=== PATIENT | male | born 1950 | race Two or more races ===

== ENCOUNTER 2024-04-06 08:15 | Day surgery (SDC) | payer OTHER, SELFPAY ==
--- NOTE | 2024-03-30 06:11 | EKG_ITS ---
[facility] Test Date: 2024-03-30 Pat Name: ISABELLA CHENEYDepartment: Room: - Gender: Male Medical Housekeeper: KRANTHI : 1950 Requested By: Toño Silver Order Number: [id number] Reading MD: Toño Silver Measurements Intervals [place] Rate: 67 P: 70 CT: 201 QRS: -55 QRSD: 96 T: 80 QT: 386 QTc: 409 Interpretive Statements SINUS RHYTHM INDETERMINATE AXIS No previous ECG available for comparison /[email or web address]/[id number].pdf
[2024-03-30 10:05] VITALS: BMI 27.4
[2024-03-30 10:35] LABS: Collection Type, Urine Clean Catch; Squamous Epithelial Cell,Urine 0 /hpf (0-5); WBC,Urine 0 /hpf (0-5)
[2024-03-30 11:19] LABS: Bilirubin,Urine Negative (Negative); Blood,Urine Negative (Negative); Clarity,Urine Clear (Clear/Hazy); Color,Urine Lt-Yellow (Lt Yel-Yel); Glucose, Urine Negative (Negative); Ketones,Urine Negative (Negative); Leukocyte Esterase,Urine Negative (Negative); Nitrite,Urine Negative (Negative); Protein,Urine Negative (Neg - Trace); RBC,Urine 2 /hpf (0-3); Specific Gravity,Urine 1.012 (1.001-1.035); Urobilinogen,Urine Negative mg/dL (0.0-1.0)
[2024-03-30 11:19] LABS: Basophils % (Auto) 0 % (0-2.5); Eosinophils # (Auto) 0.1 Thou/mm3 (0.0-0.5); Eosinophils % (Auto) 1 % (0-10); Hematocrit 41.1 % (41.0-53.0); Hemoglobin 13.6 g/dL (13.5-16.0); Immature Granulocytes % (Auto) 1 % (0-0); Immature Granulocytes Auto 0.04 Thou/mm3 (0.00-0.00); Lymphocytes # (Auto) 1.4 Thou/mm3 (1.0-4.8); Lymphocytes % (Auto) 22 % (10-50); Mean Corpuscular HGB Conc 33.1 g/dl (31.0-37.0); Mean Corpuscular Hemoglobin 29.8 pg (25.0-35.0); Mean Corpuscular Volume 90 fL (80-100); Monocytes # (Auto) 0.4 Thou/mm3 (0.0-0.8); Monocytes % (Auto) 7 % (0-12); Neutrophils # (Auto) 4.5 Thou/mm3 (1.8-7.7); Neutrophils % (Auto) 70 % (37-80); Nucleated Red Blood Cell % 0 /100 WBC (0); Platelet Count 311 Thou/mm3 (140-440); RDW Standard Deviation 43.2 fL (35.1-43.9); Red Blood Count 4.57 Miln/mm3 (4.50-5.90); White Blood Count 6.5 Thou/mm3 (3.8-10.6)
[2024-03-30 11:28] LABS: Alanine Aminotransferase 14 U/L (10-49); Albumin, Serum 4.5 gm/dL (3.4-4.8); Albumin/Globulin Ratio 1.5 (1.2-2.2); Alkaline Phosphatase 74 U/L (46-116); Anion Gap 5 (7-16); Aspartate Amino Transferase < 10 U/L (0-34); BUN/Creatinine Ratio 11 Ratio (12-20); Bilirubin,Total 0.8 mg/dL (0.3-1.2); Blood Urea Nitrogen 13 mg/dL (9-23); Calcium 9.4 mg/dL (8.3-10.6); Calcium (Corrected) 9.4 mg/dL (8.5-10.1); Chloride 104 mMol/L (98-107); Creatinine (Component) 1.2 mg/dL (0.6-1.3); Estimated Creatinine Clearance 51.5 mL/min (>60); Globulin 3.1 gm/dL (2.3-3.5); Glucose 93 mg/dL (74-106); Osmolality,Calculated 275 (275-295); Potassium 4.2 mMol/L (3.4-5.1); Sodium 138 mMol/L (136-145); Total Protein 7.6 gm/dL (5.7-8.2); eGFR > 60 See Note
[2024-04-06] VITALS (7 sets, daily range): BP systolic 109–127; BP diastolic 64–75; PULSE 55–62; RESP 12–16; TEMP 36.2–36.6; O2SAT 95–99; BMI 26.9
--- NOTE | 2024-04-06 08:13 | ESHP_ITS ---
RE: ISABELLA SANTILLAN : 1950 DATE OF ADMISSION: 04/05/2024 HISTORY OF PRESENT ILLNESS: The patient is a 74-year-old male Sinhala-speaking with difficulty urinating with elevated PSA of 5.18. He is now scheduled to have cystoscopy and transrectal prostatic ultrasound with ultrasound-guided prostatic needle biopsy. He has a slow urinary stream, nocturia, burning in the urine, no blood in the urine. PAST SURGICAL HISTORY: Included appendectomy and left hip replacement. SOCIAL HISTORY: He has four children. ALLERGIES: NONE KNOWN. PAST MEDICAL HISTORY: There is no history of diabetes mellitus. He has a history of hypertension. HOME MEDICATIONS: He takes: 1. Allopurinol. 2. Clonidine. 3. Tamsulosin 0.4 mg every day. 4. Coreg medication 5. Norvasc 6. Statin medication. PHYSICAL EXAMINATION: HEENT: Normal. NECK: Supple. LUNGS: Clear. CARDIOVASCULAR: Heart sounds are normal. ABDOMEN: Soft without any organomegaly. No guarding. No rigidity. EXTREMITIES: Normal. GENITOURINARY: Phallus is normal. Testes are down in the scrotum RECTAL: Reveal 2+ enlarged prostate without any hard nodules. IMPRESSION: Prostatism, prostatic obstruction, elevated PSA of 5.18. PLAN: Cystoscopy, transrectal prostatic ultrasound with ultrasound-guided prostatic needle biopsy. Planned procedure risks and complications have been discussed with the patient. The patient has understood them and agreed to proceed. DT: 11:45:42 TT: 12:33:00 Ref: [id number] - TID: [id number]
[2024-04-06] MEDS: METOCLOPRAMIDE INJ 5 MG/ML VIAL 2 ML 10 MG IVP (09:05)
[2024-04-06] MEDS: RINGERS LACTATED 1000 ML 1,000 ML 20 ML IV (09:06)
--- NOTE | 2024-04-06 11:15 | XR_ITS ---
Examination: Transrectal prostate sonography Exam date and time: April 06, 2024 1212 hours INDICATIONS: Limited sonographic imaging of the prostate for prostate biopsies TECHNIQUE AND FINDINGS: Limited trans rectal sonographic images prostate [address] Silver IMPRESSION: Limited transrectal prostate imaging
--- NOTE | 2024-04-06 12:30 | SUR.PHASEII ---
pt received from OR in recovery bay 8. pt asleep but responds to voice, breathing unlabored on room air. v/s stable. report received from Anita CORTEZ and Genny SHEPARD.
--- NOTE | 2024-04-06 12:47 | SUR.PHASEII ---
pt able to tolerate oral fluids without difficulty swallowing or nausea/vomiting.
--- NOTE | 2024-04-06 12:56 | SUR.PHASEII ---
1256 Report received from Ronaldo CORTEZ
--- NOTE | 2024-04-06 13:00 | SUR.PHASEII ---
1300 Patient family called, they stated they were 5 minutes away
--- NOTE | 2024-04-06 13:40 | SUR.PHASEII ---
3984 Patient meets discharge criteria from recovery, awake and alert, breathing unlabored, vital signs stable, denies pain, patient ate two jello and drinking juice; tolerating well, denies nausea, patient urinated in restroom prior to discharge, discharge instructions given to patient and patients daughter with the assistance of the telephone fiction and nonfiction writer prose Skip ID#[id number], daughter signed discharge instructions. Patient given all her belongings prior to discharge, transported via wheelchair and left in a private vehicle.
--- NOTE | 2024-04-06 19:12 | ESOP_ITS ---
RE: ISABELLA SANTILLAN : 1950 DATE OF OPERATION: 04/06/2024 PREOPERATIVE DIAGNOSES: Prostatism, prostatic obstruction, elevated prostatic specific antigen of 5.18. POSTOPERATIVE DIAGNOSES: Prostatism, prostatic obstruction, elevated prostatic specific antigen of 5.18. PROCEDURE PERFORMED: Cystoscopy, urethral dilatation, transrectal prostatic ultrasound with ultrasound-guided prostatic needle biopsy. ANESTHESIA: Monitored anesthesia. INDICATION: The patient is a 74-year-old gentleman with history of prostatism, nocturia, slowing urinary stream. He is on tamsulosin 0.4 mg once a day and his PSA has been 5.18. He was now scheduled to have cystoscopy and transrectal prostatic ultrasound with ultrasound-guided prostatic needle biopsy. Planned procedure, risks and complications have been discussed with the patient and his family. They have understood them and agreed to proceed. DESCRIPTION OF PROCEDURE: After the patient was brought to the operating table under adequate monitored anesthesia in dorsal lithotomy position, parts were prepped and draped in the usual fashion. Cystoscopy was then carried out, which revealed adequate urethral meatus, normal-appearing urethra, moderately enlarged bilobed prostate with a large median lobe. Residual urine at least 5 ounces, yellow and clear and was sent for culture and sensitivity examination. Bladder mucosa is heavily trabeculated with a small bladder diverticulum on the right wall and on the dome on the right side. Both diverticuli are small. Scope was withdrawn. The urethra was dilated. The patient was then turned in the left lateral position. Using transrectal approach, prostatic ultrasound was carried out and biopsies were obtained from both lobes using ultrasound guidance. The patient tolerated the entire procedure well and left the room in good condition. DT: 12:39:35 TT: 19:09:00 Ref: [id number] - TID: [id number]
== END 2024-04-06 13:40 | disposition home or self-care (01) ==
PROVIDERS: Anesthesiology; PCP Family Medicine; Referring Provider Surgery; Visit Provider Surgery
PROC: 0TJB8ZZ Inspection of Bladder, Via Natural or Artificial Opening Endoscopic (ICD-10-PCS; CPT 52000; principal; 2024-04-06 09:45)
PROC: (CPT 55700; 2024-04-06 09:45)
DX: C61 Malignant neoplasm of prostate (principal); N40.1 Benign prostatic hyperplasia with lower urinary tract symptoms; R97.20 Elevated prostate specific antigen [PSA]; I10 Essential (primary) hypertension; Z90.49 Acquired absence of other specified parts of digestive tract; Z01.810 Encounter for preprocedural cardiovascular examination
CPT/HCPCS: 52281; 55700; 36415; 76942; 80053; 81001; 85025; 87086; 93005; A4217; A4649; J0694; J2250; J2704; J2765; J3010; J7120